=== PATIENT | male | born 1950 | race Caucasian/White ===

== ENCOUNTER 2019-04-28 13:36 | Emergency (ER) | payer OTHER ==
[~2019-04-28] VITALS: Ht 177.8 cm; Wt 90.7 kg
--- NOTE | 2019-04-28 14:59 | NUR ---
Patient discharged to home in stable condition. Written and verbal after care instructions given. Patient verbalizes understanding of instruction.
[2019-04-28 15:00] VITALS: BP 125/69
== END 2019-04-28 15:01 | disposition home or self-care (01) ==
LOC: ER 13:47
DX: B30.8 Other viral conjunctivitis (principal); J06.9 Acute upper respiratory infection, unspecified; J98.01 Acute bronchospasm; I25.2 Old myocardial infarction; E78.5 Hyperlipidemia, unspecified; Z86.73 Personal history of transient ischemic attack (TIA), and cerebral infarction without residual deficits